=== PATIENT | female | born 1995 | race Caucasian/White ===

== ENCOUNTER 2021-03-12 11:37 | Day surgery (SDC) | payer BC ==
[~2021-03-12] VITALS: Ht 157.5 cm; Wt 65.0 kg
[~2021-03-12 11:37] MED LIST: ACETAMINOPHEN 500 MG TABLET PO PRN; DIVA500T2 PO; DOCU-109 PO; DULO60CA7 PO; FAMO20TA5 PO; HYDROmorphone 2 MG/ML VIAL IVP PRN; IBUP-1060 PO; IV RINGERS,LACTATED 1000ML 1,000 ML IV SCH; MORPHINE SULFATE 2 MG/ML INJ. IVP PRN; OXYC1TAB15 PO; PROCHLORPERAZINE 10 MG/2 ML VIAL. IVP PRN; TRAZ-118 PO; ceFAZolin SODIUM IV Push 1 GM VIAL. IVP PRN; fentaNYL PF VIAL 100 MCG/2 ML VIAL IVP PRN
[2021-03-12] MEDS ORDERED: BUPIVACAINE-EPI 0.25%-1:200000 MPF 30 ML VIAL. ONE (11:59)
[2021-03-12] MEDS ORDERED: fentaNYL PF VIAL 100 MCG/2 ML VIAL ONE ×2 (12:01→14:22)
[2021-03-12] MEDS ORDERED: MIDAZOLAM HCL/PF 2 MG/2 ML VIAL. ONE (12:01)
[2021-03-12 12:22] VITALS: BP 113/56
--- NOTE | 2021-03-12 12:45 | PDOC1 ---
History and Physical Date of Admission Date of Admission DATE: 03/12/21 TIME: 12:42 Identification/Chief Complaint Chief Complaint Need pacemaker battery change Source Source: Patient History of Present Illness History of Present Illness 25-year-old female with a pacemaker in place as was placed subpectoral at the time because of her age it is needing battery change. Past Medical History Cardiovascular: Other (Pacemaker) Psych: Depression Past Surgical History Past Surgical History: Other (Pacemaker tonsillectomy) Family History Family History: No Significant Social History Smoke: No ALCOHOL: none Drugs: None Current Medications Current Medications Current Medications Acetaminophen (Tylenol) 1,000 mg 1X PREOP PRN PO PRIOR TO PROCEDURE; Start 03/12/21 at 06:00 Cefazolin Sodium (Ancef) 1 gm 1X PREOP PRN IVP PRIOR TO PROCEDURE; Start 03/12/21 at 06:00 Fentanyl Citrate (Fentanyl 2ml Vial) 25 mcg PRN Q5MIN PRN IVP MILD PAIN 1-3; Start 03/12/21 at 06:00; Stop 03/13/21 at 05:59 Fentanyl Citrate (Fentanyl 2ml Vial) 50 mcg PRN Q5MIN PRN IVP MODERATE PAIN 4- 6; Start 03/12/21 at 06:00; Stop 03/13/21 at 05:59 Morphine Sulfate (Morphine Sulfate) 1 mg PRN Q10MIN PRN IVP SEVERE PAIN 7-10; Start 03/12/21 at 06:00; Stop 03/13/21 at 05:59 Ringer's Solution 1,000 ml @ 30 mls/hr Q24H IV Last administered on 03/12/21at 12:27; Start 03/12/21 at 06:00; Stop 03/12/21 at 17:59 Hydromorphone HCl (Dilaudid) 0.5 mg PRN Q10MIN PRN IVP SEVERE PAIN 7-10, 2nd CHOICE; Start 03/12/21 at 06:00; Stop 03/13/21 at 05:59 Prochlorperazine Edisylate (Compazine) 5 mg PACU PRN PRN IVP NAUSEA, MRX1; Start 03/12/21 at 06:00; Stop 03/13/21 at 05:59 Bupivacaine HCl/ Epinephrine Bitart (Sensorcaine-Epi 0.25%-1:[id number] Mpf) 30 ml STK-MED ONCE .ROUTE ; Start 03/12/21 at 11:59; Stop 03/12/21 at 11:59; Status DC Fentanyl Citrate (Fentanyl 2ml Vial) 100 mcg STK-MED ONCE .ROUTE ; Start 03/12/21 at 12:01; Stop 03/12/21 at 12:02; Status DC Midazolam HCl (Versed) 2 mg STK-MED ONCE .ROUTE ; Start 03/12/21 at 12:01; Stop 03/12/21 at 12:02; Status DC Active Scripts Active Reported Depakote (Divalproex Sodium) 500 Mg Tablet.dr 250 Mg PO BID Trazodone Hcl 50 Mg Tablet 50 Mg PO PRN PRN Cymbalta (Duloxetine Hcl) 60 Mg Capsule.dr 60 Mg PO HS Famotidine 20 Mg Tablet 20 Mg PO BID Allergies Allergies: Coded Allergies: No Known Drug Allergies (Unverified , 03/12/21) Physical Exam General: Alert, Oriented X3, Cooperative HEENT: Atraumatic, PERRLA, EOMI Lungs: Clear to auscultation, Normal air movement Heart: RRR, no murmurs Abdomen: Normal bowel sounds, Soft, No tenderness Extremities: No edema Skin: No significant lesion Neuro: Normal speech Psych/Mental Status: Mental status NL Vitals Vitals Vital Signs Date Time Temp Pulse Resp B/P (MAP) Pulse Ox O2 Delivery O2 Flow Rate FiO2 03/12/21 12:24 98.4 65 20 113/56 100 Room Air 98.4 Labs Labs Laboratory Tests Test 03/12/21 11:59 Bedside Urine HCG, Qualitative Hcg negative (Negative) Laboratory Tests Test 03/12/21 11:59 Bedside Urine HCG, Qualitative Hcg negative (Negative) VTE Prophylaxis Ordered VTE Prophylaxis Devices: Yes VTE Pharmacological Prophylaxi: Contraindicated Assessment/Plan Assessment/Plan Pacemaker battery change Justifications for Admission Other Justification KWAKU WHITFIELD MD Mar 12, 2021 12:45
[2021-03-12] MEDS ORDERED: ceFAZolin SODIUM IV Push 1 GM VIAL. IVP ONE (13:38)
[2021-03-12] MEDS ORDERED: KETOROLAC 30 MG/ML VIAL. ONE (14:01)
[2021-03-12] MEDS ORDERED: ONDANSETRON PF 4 MG/2 ML VIAL. ONE (14:01)
[2021-03-12] MEDS ORDERED: SEVOFLURANE 31 TO 60 MINUTES. IH ONE (14:01)
[2021-03-12] MEDS ORDERED: DEXAMETHASONE SOD PHOS 4 MG/ML VIAL ONE (14:01)
[2021-03-12] MEDS: fentaNYL PF VIAL 100 MCG/2 ML VIAL IVP PRN ×2 (14:25→14:35)
--- NOTE | 2021-03-12 14:50 | PDOC4 ---
Operative Note Operative Note Date: March 122020 at 1440 7 PM Preoperative diagnosis: Pacemaker Postoperative diagnosis same Procedure: Removal of old pacemaker with replacement of new in subcutaneous pocket Surgeon: Manfred Specimen: Pacemaker Dictation: Patient is a 25-year-old female had a pacemaker placed at the age of 12 is now needing to be replaced. It was originally placed in a subpectoral area. Procedure of removal pacemaker and replacement with new and a faust bcutaneous pocket was explained to the patient detail risk benefits were also discussed including bleeding infection alternatives this procedure also discussed with patient who seemed to understand and gave a verbal written consent to have the procedure performed. Patient was taken to the operating room placed in supine position general anesthesia was initiated once patient was sleeping intubated her left chest and neck were prepped and draped usual sterile fashion using ChloraPrep. Area over the previous incision was injected with quarter percent Marcaine with epinephrine incision made with 15 blade scalpel is carried down through the subcutaneous tissue using electrocautery right hemostasis down to the subpectoral area the pacemaker was visualized it was freed up from its adherent tissues with Metzenbaum scissors and sharp dissection once it was freed. The [employer] rep open new pacemaker on the back table this was brought up the wires were changed out the old pacemaker was removed. The pacemaker was interrogated by the rep and appear to be working properly. A pocket in the subcutaneous space just above the pectoralis muscle was made with electrocautery pacemaker was placed in this pocket and the wound was closed in 2 layers of deep layer running 3-0 Vicryl and a skin reapproximated with 4-0 subcuticular Monocryl Mastisol Steri-Strips and island dressings were applied. Patient was awakened and extubated in the operating room taken to recovery in stable condition all sponge instrument needle counts listed as correct estimated blood loss 10 mL. KWAKU WHITFIELD MD Mar 12, 2021 14:50
[2021-03-12] MEDS ORDERED: HYDR-2761 PO (14:52)
--- NOTE | 2021-03-12 14:53 | DISCH ---
DISCHARGE INSTRUCTIONS Condition on Discharge Condition on Discharge: Stable Activity After Discharge Activity Instructions for Disc: Activity as tolerated, Walk in house Diet after Discharge Diet after Discharge: Regular Diet Texture: Regular Swallowing Supervision: None needed Wound Incision Care Other wound/incision instructi: Barbara showkatie in 24-hour Contacting the DRGarcía after DC Call your doctor for: If your condition worsens Follow-Up Follow up with: Dr. Whitfield in 2-week KWAKU WHITFIELD MD Mar 12, 2021 14:53
[2021-03-12 15:00] VITALS: BP 116/64
[2021-03-12] MEDS ORDERED: HYDROcodone/APAP 5/325MG 1 TAB TABLET PO ONE (15:00)
== END 2021-03-12 15:20 | disposition home or self-care (01) ==
LOC: SURG 11:37
PROVIDERS: ATTEND Surgery
DX: Z45.018 Encounter for adjustment and management of other part of cardiac pacemaker (principal); K21.9 Gastro-esophageal reflux disease without esophagitis; F41.9 Anxiety disorder, unspecified; F32.9 Major depressive disorder, single episode, unspecified; Z79.899 Other long term (current) drug therapy; Z98.890 Other specified postprocedural states; Z87.891 Personal history of nicotine dependence
CPT/HCPCS: 33227; 81025; A4364; A4930; A6402; C1785; J0690; J1100; J1885; J2250; J2405; J3010; J3490; A4452